=== PATIENT | female | born 1965 | race Caucasian/White ===

== ENCOUNTER → 2016-08-30 | Outpatient (REF) | payer BC, SELFPAY | LOC: M SFHCWAGY 09:21 | PROVIDERS: ATTEND Nurse Practitioner Women's Health | DX: Z12.4 Encounter for screening for malignant neoplasm of cervix (principal) ==

== ENCOUNTER → 2016-08-30 | Outpatient (CLI) | payer BC, SELFPAY ==
--- NOTE | 2016-08-30 11:08 | REPMRS ---
Patient History The patient states she had a clinical breast exam in 09/09 Patient is postmenopausal, had previous chemotherapy at age 31, and has history of lymphoma. Family history of prostate cancer in maternal grandfather at age 50 or over and breast cancer in paternal grandmother at age 50 or over. Excisional biopsy of the left breast, 1997. Chemotherapy, 1997. Took unspecified hormones for 12 years. Digital Woman Screen Mammo: August 30, 2016 - Exam #: [id number] Bilateral CC and MLO view(s) were taken. Technologist: Devi Salas, Technologist Prior study comparison: August 04, 2014, digital woman screen mammo performed at [facility]. August 03, 2013, digital woman screen mammo performed at [facility]. May 28, 2012, digital woman screen mammo performed at [facility]. FINDINGS: There are scattered fibroglandular densities. There has been no change in the appearance of the mammogram from the prior studies. There is a mild amount of scattered fibroglandular density which is fairly symmetric. There is no interval development of dominant mass, architectural distortion, or clustered microcalcification suggestive of malignancy. ASSESSMENT: BI-RADS/ACR category 1 mammogram. Negative. Recommendation Routine screening mammogram in 1 year (for women over age 40). This mammogram was interpreted with the aid of an FDA-approved computer-aided dectection system. Electronically Signed By: Fantasma Cummins MD 08/30/16 [id number]
== END ==
LOC: M WHC 09:09
PROVIDERS: ATTEND Nurse Practitioner Women's Health
DX: Z12.31 Encounter for screening mammogram for malignant neoplasm of breast (principal)

== ENCOUNTER → 2017-08-29 | Outpatient (REF) | payer BC | LOC: M SFHCWAGY 09:36 | DX: Z12.4 Encounter for screening for malignant neoplasm of cervix (principal) ==

== ENCOUNTER → 2017-08-29 | Outpatient (CLI) | payer BC | LOC: M WHC 09:11 | DX: Z12.31 Encounter for screening mammogram for malignant neoplasm of breast (principal); Z78.0 Asymptomatic menopausal state; Z85.71 Personal history of Hodgkin lymphoma; Z92.21 Personal history of antineoplastic chemotherapy; Z80.3 Family history of malignant neoplasm of breast; Z92.89 Personal history of other medical treatment; Z92.29 Personal history of other drug therapy | CPT/HCPCS: G0123 ==

== ENCOUNTER → 2018-01-05 | Outpatient (REF) | payer BC ==
[2018-01-05 12:16] LABS: ALBUMIN 3.8 GM/DL (3.2-5.2); ALKALINE PHOSPHATASE 67 U/L (45-117); ALT/SGPT 27 U/L (12-78); ANION GAP 8 MEQ/L (8-16); AST/SGOT 22 U/L (7-37); BILIRUBIN,TOTAL 0.5 MG/DL (0.2-1.0); BLOOD UREA NITROGEN 17 MG/DL (7-18); CALCIUM LEVEL 8.9 MG/DL (8.5-10.1); CARBON DIOXIDE LEVEL 24 MEQ/L (21-32); CHLORIDE LEVEL 108 MEQ/L (98-107); CHOLESTEROL LEVEL 206 MG/DL (<200); CHOLESTEROL RISK RATIO 3.678 (<5); CREATININE FOR GFR 0.63 MG/DL (0.55-1.30); GLOMERULAR FILTRATION RATE > 60.0 (>51); GLUCOSE, FASTING 100 MG/DL (70-100); HDL CHOLESTEROL 56 MG/DL (>40); LDL CHOLESTEROL 116 MG/DL (<100); NON-HDL-C 150 MG/DL; POTASSIUM SERUM 4.5 MEQ/L (3.5-5.1); SODIUM LEVEL 140 MEQ/L (136-145); TOTAL PROTEIN 7.6 GM/DL (6.4-8.2); TRIGLYCERIDES LEVEL 169 MG/DL (<150)
[2018-01-05 14:23] LABS: TOTAL 25(OH) VITAMIN D 22.5 NG/ML (30.0-100.0)
== END ==
LOC: M SFHCPLAZ 08:20
DX: E78.2 Mixed hyperlipidemia (principal); E55.9 Vitamin D deficiency, unspecified
CPT/HCPCS: 80053

== ENCOUNTER 2018-08-03 06:44 | Day surgery (SDC) | payer BC ==
[~2018-08-03] VITALS: Ht 165.1 cm; Wt 73.5 kg
[~2018-08-03 06:44] MED LIST: CALC1TAB8 PO; MULTCAP PO; NS 1,000 ML IV ONE; VITA-122 PO
[2018-08-03] MEDS ORDERED: PROPOFOL 200 MG/20 ML VIAL As Ordered ONE (07:04)
[2018-08-03] MEDS ORDERED: LIDOCAINE 2% INJ 100 MG/5 ML SDV (FOR ANES.) As Ordered ONE (07:04)
--- NOTE | 2018-08-03 07:53 | ROOR ---
Patient Name: Concepción Salamanca Procedure Date: 08/03/2018 7:29 AM Date of : 1965 Age: 52 Room: [facility] Gender: Female Note Status: Finalized Procedure: Total Colonoscopy to Cecum + Biopsy Polypectomy Indications: High risk colon cancer surveillance: Personal history of colonic polyps, Last colonoscopy: 2014 Providers: Torsten Kim MD Referring MD: Gwen Bullard NP Requesting Provider: Medicines: Monitored Anesthesia Care Complications: No immediate complications. Procedure: Pre-Anesthesia Assessment: - The heart rate, respiratory rate, oxygen saturations, blood pressure, adequacy of pulmonary ventilation, and response to care were monitored throughout the procedure. The Colonoscope was introduced through the anus and advanced to the cecum, identified by appendiceal orifice and ileocecal valve. The colonoscopy was performed without difficulty. The patient tolerated the procedure well. The quality of the bowel preparation was good. Findings: The perianal and digital rectal examinations were normal. Non-bleeding internal hemorrhoids were found during retroflexion. The hemorrhoids were small and Grade I (internal hemorrhoids that do not prolapse). A diffuse area of mild melanosis was found in the entire colon. Multiple small and large-mouthed diverticula were found in the recto-sigmoid colon and sigmoid colon. Two sessile polyps were found in the hepatic flexure. The polyps were diminutive in size. These polyps were removed with a cold biopsy forceps. Resection and retrieval were complete. The exam was otherwise without abnormality on direct and retroflexion views. Impression: - Non-bleeding internal hemorrhoids. - Melanosis in the colon. - Diverticulosis in the recto-sigmoid colon and in the sigmoid colon. - Two diminutive polyps at the hepatic flexure, removed with a cold biopsy forceps. Resected and retrieved. - The examination was otherwise normal on direct and retroflexion views. - The exam was otherwise normal to the cecum. Recommendation: - Patient has a contact number available for emergencies. The signs and symptoms of potential delayed complications were discussed with the patient. Return to normal activities tomorrow. Written discharge instructions were provided to the patient. - High fiber diet. - Discharge patient to home. - Continue present medications. - Await pathology results. - Telephone GI clinic for pathology results in 1 week. - Repeat colonoscopy in 5 years for surveillance. - Return to referring physician. - The findings and recommendations were discussed with the patient's family. Torsten Kim MD Torsten Kim MD 08/03/2018 7:52:37 AM Electronically signed by Torsten Kim MD Number of Addenda: 0 Note Initiated On: 08/03/2018 7:29 AM Estimated Blood Loss: Estimated blood loss: none.
[2018-08-03 08:05] VITALS: BP 126/87
== END 2018-08-03 08:14 | disposition home or self-care (01) ==
LOC: M OPP 06:44
PROVIDERS: ATTEND Internal Medicine Gastroenterology
DX: K63.5 Polyp of colon (principal); K64.0 First degree hemorrhoids; K57.30 Diverticulosis of large intestine without perforation or abscess without bleeding; K63.89 Other specified diseases of intestine; Z86.010 Personal history of colon polyps

== ENCOUNTER → 2018-10-06 | Outpatient (CLI) | payer BC ==
[~2018-10-06] MED LIST changes: -NS 1,000 ML IV ONE
--- NOTE | 2018-10-06 14:07 | REPMRS ---
Patient History The patient states she had a clinical breast exam in 09/2018. Patient is postmenopausal, has history of [place]kins Lymphoma cancer at age 31, and had previous chemotherapy at age 31. Family history of breast cancer at age 50 or over in paternal grandmother, prostate cancer at age 50 or over in maternal grandfather. Excisional biopsy of the left breast, 1997. Chemotherapy, 1997. Took unspecified hormones for 12 years. Digital Woman Screen Mammo: October 06, 2018 - Exam #: [id number] Bilateral CC and MLO view(s) were taken. Technologist: Zully Strong, Technologist Prior study comparison: August 29, 2017, bilateral digital woman screen mammo performed at [facility]. August 30, 2016, digital woman screen mammo performed at [facility]. August 04, 2014, digital woman screen mammo performed at [facility]. FINDINGS: There are scattered fibroglandular densities. There has been no change in the appearance of the mammogram from the prior studies. There is a mild amount of scattered fibroglandular density which is fairly symmetric. There is no interval development of dominant mass, architectural distortion, or grouped microcalcification suggestive of malignancy. 3-D tomosynthesis shows no additional findings. Assessment: BI-RADS/ACR category 1 mammogram. Negative Mammogram. Recommendation Routine screening mammogram of both breasts in 1 year (for women over age 40). This patient's Lifetime Breast Cancer Risk is estimated at 9.9 %. This mammogram was interpreted with the aid of an FDA-approved computer-aided dectection system. Electronically Signed By: Fantasma Cummins MD 10/06/18 [id number]
== END ==
LOC: M WHC 11:26
PROVIDERS: ATTEND Nurse Practitioner Women's Health
DX: Z12.31 Encounter for screening mammogram for malignant neoplasm of breast (principal); Z78.0 Asymptomatic menopausal state; Z85.89 Personal history of malignant neoplasm of other organs and systems; Z92.21 Personal history of antineoplastic chemotherapy; Z86.018 Personal history of other benign neoplasm; Z92.29 Personal history of other drug therapy

== ENCOUNTER → 2018-10-06 | Outpatient (REF) | payer BC ==
[2018-10-09 14:17] LABS: HPV HYBRID CAPTURE II Negative (Negative)
== END ==
LOC: M SFHCWAGY 11:34
PROVIDERS: ATTEND Nurse Practitioner Women's Health
DX: Z12.4 Encounter for screening for malignant neoplasm of cervix (principal)
CPT/HCPCS: 87624; G0123

== ENCOUNTER → 2024-10-18 | Outpatient (CLI) | payer OTHER ==
[~2024-10-18] MED LIST changes: -CALC1TAB8 PO; +CALC600T67 PO
== END ==
LOC: M WHC 09:58
PROVIDERS: ATTEND Obstetrics & Gynecology
DX: Z12.31 Encounter for screening mammogram for malignant neoplasm of breast (principal)

== ENCOUNTER → 2024-10-18 | Outpatient (REF) | payer OTHER ==
[2024-10-20 14:37] LABS: HPV APTIMA Not Detected (Not Detected)
== END ==
LOC: M SFHCWAGY 12:48
PROVIDERS: ATTEND Obstetrics & Gynecology
DX: Z12.4 Encounter for screening for malignant neoplasm of cervix (principal); Z77.9 Other contact with and (suspected) exposures hazardous to health